=== PATIENT | female | born 1990 ===

== ENCOUNTER 2016-09-21 09:12 | Emergency (ER) | payer MEDICAID ==
[2016-09-21 09:12] VITALS: BMI 19.6
[2016-09-21 09:24] VITALS: BP 122/75; PULSE 89; RESP 15; TEMP 99.2; O2SAT 99
--- NOTE | 2016-09-21 09:51 | ED PDOC ---
Arrival/HPI - General Historian: Patient - General Chief Complaint: Eye Problem Time Seen by Provider: 09/21/16 09:45 - History of Present Illness Narrative History of Present Illness (Text): 09/21/16 10:04 26 yo female come in for evaluation of Right eye swelling over upper eyelid associated with mild pain gradually developed for past 2 days. Otherwise, pt denies known trauma or injury, fever, chills, denies visual changes, blurry vision, double vision, eye discharge, pain with eye movement, denies contact use. Ambulate to Ed for evaluation, not in any apparent distress. (Rosalind Batista) Past Medical History - Provider Review Nursing Documentation Reviewed: Yes - Travel History Have you recently traveled outside [place] w/in the past 3 mons?: No - Past History Past History: No Previous - Tetanus Immunization Tetanus Immunization: Unknown - Cardiac Hx Cardiac Disorders: No - Pulmonary Hx Respiratory Disorders: No - Neurological Hx Neurological Disorder: No - HEENT Hx HEENT Disorder: No - Renal Hx Renal Disorder: No - Endocrine/Metabolic Hx Endocrine Disorders: No - Hematological/Oncological Hx Anemia: Yes - Integumentary Hx Dermatological Disorder: No - Musculoskeletal/Rheumatological Hx Musculoskeletal Disorders: No - Gastrointestinal Hx Gastrointestinal Disorders: No - Genitourinary/Gynecological Hx Genitourinary Disorders: No - Psychiatric Hx Psychophysiologic Disorder: No Hx Substance Use: No Family/Social History - Physician Review Nursing Documentation Reviewed: Yes Family/Social History: No Known Family HX Smoking Status: Never Smoked Hx Alcohol Use: No Hx Substance Use: No Allergies/Home Meds Allergies/Adverse Reactions: Allergies diphenhydramine [From Benadryl] Allergy (Verified 09/21/16 09:24) .anxiety Review of Systems - Physician Review All systems were reviewed & negative as marked: Yes - Review of Systems Constitutional: Normal Eyes: Eye Pain ENT: Normal Respiratory: Normal Musculoskeletal: Normal Skin: Normal Neurological: Normal Endocrine: Normal Hemo/Lymphatic: Normal Psychiatric: Normal Physical Exam Vital Signs Reviewed: Yes Temperature: Afebrile Blood Pressure: Normal Pulse: Regular Respiratory Rate: Normal Appearance: Positive for: Well-Appearing, Non-Toxic, Comfortable Pain Distress: Mild Mental Status: Positive for: Alert and Oriented X 3 - Systems Exam Head: Present: Normocephalic Pupils: Present: PERRL Extroacular Muscles: Present: EOMI, Other (no pain or limitation on extraocular movement B/L) Conjunctiva: Present: Normal, Other (Right eye: mild edema over upper lateral eyelid with small tender swelling noted inside upper eyelid c/w chalazion. No periorbital edema or erythema. Conjuctiva clear, no discharge.) Ears: Present: Normal, Normal Canal Mouth: Present: Moist Mucous Membranes, Normal Lips. No: Drooling Pharnyx: No: ERYTHEMA, EXUDATE, TONSILS ENLARGED Nose (Internal): Present: Normal Inspection Neck: Present: Trachea Midline. No: Meningeal Signs, JVD Neurological: Present: Speech Normal Skin: Present: Warm, Dry, Normal Color Lymphatic: No: Cervical Adenopathy Psychiatric: Present: Alert, Oriented x 3 Medical Decision Making ED Course and Treatment: 09/21/16 On re-evaluation, pt is afebrile, hemodynamicaly stable. non-toxic. VA: R20/20, L20/20, B/L20/20 Right eye; exam c/w chalazion. Pt advised on course of ds. ref. to f/u with opht in 1-2 days for re-evaluation. Return to Ed if any worsening or new changes. (Rosalind Batista) I was available for consultation during PA evaluation. The chart was reviewed by me, and I agree with disposition. The documented history was done by the physician locksmith. The documented physical exam was done by the physician locksmith. The documented procedures were done by the physician locksmith. (Malik Hernandez) Disposition/Present on Arrival - Present on Arrival Any Indicators Present on Arrival: No History of DVT/PE: No History of Uncontrolled Diabetes: No Urinary Catheter: No History of Decub. Ulcer: No History Surgical Site Infection Following: None - Disposition Have Diagnosis and Disposition been Completed?: Yes Disposition Time: 09:48 - Disposition Diagnosis: Chalazion Disposition: HOME/ ROUTINE Condition: STABLE Discharge Instructions (ExitCare): Chalazion (ED) Print Language: WELSH Additional Instructions: WARM COMPRESSES TO RIGHT EYE TAKE MEDICATION PRESCRIBED FOLLOW UP WITH OPHTHALMOLOGY IN 2-3 DAYS FOR RE-EVALUATION. RETURN TO ED IF ANY WORSENING OR NEW CHANGES. Prescriptions: Neomycin/Polymyxin/Dexamethaso [Dexamethasone/Neomycin/Polymyxin 5 Ml] 2 drop RIGHTEYE Q4 #1 bottle Referrals: Farhan Aponte MD [Staff Provider] - Follow up with primary Forms: [employer] (Nepalese), WORK NOTE
== END 2016-09-21 10:03 | disposition home or self-care (01) ==
LOC: ED 09:12
DX: H00.11 Chalazion right upper eyelid (principal)

== ENCOUNTER 2016-11-14 09:57 | Emergency (ER) | payer MEDICAID ==
[2016-11-14 09:58] VITALS: BMI 19.6
[2016-11-14 10:03] VITALS: TEMP 98.3
[2016-11-14 10:20] LABS: URINE BILIRUBIN NEGATIVE (NEGATIVE); URINE BLOOD NEGATIVE (NEGATIVE); URINE GLUCOSE (UA) NEGATIVE (NEGATIVE); URINE KETONE NEGATIVE (NEGATIVE); URINE LEUKOCYTE ESTERASE LARGE Leu/uL (NEGATIVE); URINE PROTEIN NEGATIVE mg/dL (<30 mg/dL); URINE UROBILINOGEN 0.2 E.U./dL (<1 E.U./dL)
--- NOTE | 2016-11-14 10:26 | ED PDOC ---
Arrival/HPI - General Chief Complaint: Abdominal Pain Time Seen by Provider: 11/14/16 10:02 Historian: Patient - History of Present Illness Narrative History of Present Illness (Text): 11/14/16 10:23 A 26 year old female, with no significant past medical history, presents with 2 week duration, intermittent left lower quadrant abdominal pain. The patient denies any symptoms, fevers, chills, headache, dizziness, chest pain, shortness of breath, dyspnea on exertion, cough, nausea, vomiting, diarrhea, back pain, neck pain, dysuria, or any other complaint. PMD: Dr. Linda Camp Time/Duration: Other (2 weeks) Symptom Onset: Sudden Symptom Course: Unchanged Activities at Onset: Rest, Light Context: Home Past Medical History - Provider Review Nursing Documentation Reviewed: Yes - Past History Past History: No Previous - Infectious Disease Hx of Infectious Diseases: None - Tetanus Immunization Tetanus Immunization: Unknown - Cardiac Hx Cardiac Disorders: No - Pulmonary Hx Respiratory Disorders: No - Neurological Hx Neurological Disorder: No - HEENT Hx HEENT Disorder: No - Renal Hx Renal Disorder: No - Endocrine/Metabolic Hx Endocrine Disorders: No - Hematological/Oncological Hx Anemia: Yes - Integumentary Hx Dermatological Disorder: No - Musculoskeletal/Rheumatological Hx Musculoskeletal Disorders: No - Gastrointestinal Hx Gastrointestinal Disorders: No - Genitourinary/Gynecological Hx Genitourinary Disorders: No - Psychiatric Hx Psychophysiologic Disorder: No Hx Substance Use: No - Anesthesia Hx Anesthesia: No Family/Social History - Physician Review Nursing Documentation Reviewed: Yes Family/Social History: No Known Family HX Smoking Status: Never Smoked Hx Alcohol Use: No Hx Substance Use: No Allergies/Home Meds Allergies/Adverse Reactions: Allergies diphenhydramine [From Benadryl] Allergy (Verified 11/14/16 10:00) .anxiety Review of Systems - Physician Review All systems were reviewed & negative as marked: Yes Physical Exam - Physical Exam Narrative Physical Exam (Text): - Review of Systems Constitutional: Normal. absent: Fatigue, Weight Change, Fevers Eyes: Normal ENT: denies sore throat, denies tristhmus Respiratory: Normal. absent: SOB, Cough, Sputum Cardiovascular: absent: Chest Pain, Palpitations, Syncope Gastrointestinal: (+) LLQ Abdominal Pain. absent: Diarrhea, Nausea, Vomiting Genitourinary: Normal. absent: Dysuria, Frequency, Hematuria, vaginal bleeding Musculoskeletal: Normal. absent: Arthralgias, Back Pain, Neck Pain Skin: no rashes, no erythema Neurological: absent: Focal Weakness Endocrine: Normal Hemo/Lymphatic: Normal Psychiatric: No suicidal or homicidal ideations Physical exam Patient appears age appropriate in no distress, speaking full sentences without difficulty - Systems Exam Head: Present: Atraumatic, Normocephalic Pupils: Present: PERRL Extroacular Muscles: Present: EOMI Conjunctiva: Present: Normal Mouth: Present: Moist Mucous Membranes Neck: Present: Normal Range of Motion. No: MIDLINE TENDERNESS, Paraspinal Tenderness Respiratory/Chest: Present: Clear to Auscultation, Good Air Exchange. No: Respiratory Distress, Accessory Muscle Use, Tachypneic Cardiovascular: Present: Regular Rate and Rhythm, Normal S1, S2, Peripheal Pulses Present. No: Murmurs Abdomen: Present: Suprapubic and LLQ Tenderness to palpation. Normal Bowel Sounds. No: Distention, Peritoneal Signs, Rebound, Guarding Back: Present: Normal Inspection. No: Midline Tenderness, Paraspinal Tenderness Upper Extremity: Present: Normal Inspection. No: Cyanosis, Edema Lower Extremity: Present: Normal Inspection. No: Edema Neurological: Present: GCS=15, Speech Normal, cranial nerves II through XII fully intact with no cerebellar abnormality, neurosensory fully intact. No focal neurological deficits. Skin: Present: Warm, Dry, Normal Color. No: Rashes Lymphatic: Present: OX3, NI, NC Psychiatric: Present: Alert, Oriented x 3, Normal Insight, Normal Concentration Vital Signs Reviewed: Yes Vital Signs Temp Pulse Resp BP Pulse Ox 11/14/16 09:58 98.3 F 84 16 124/80 100 Temperature: Afebrile Blood Pressure: Normal Pulse: Regular Respiratory Rate: Normal Appearance: Positive for: Well-Appearing, Non-Toxic, Comfortable Pain Distress: None Mental Status: Positive for: Alert and Oriented X 3 Medical Decision Making ED Course and Treatment: 11/14/16 10:29 Impression: A 26 year old female with 2 week duration, intermittent LLQ abdominal pain. On exam, patient has Suprapubic and LLQ tenderness on palpation. Differential Diagnosis included but are not limited to: UTI vs. Ovarian Cysts Plan: -- Pelvic Ultrasound -- Labs -- Urinalysis -- Reassess and disposition Prior Visits: Notes and results from previous visits were reviewed. Patient was last seen in the emergency department on 09/21/2016 for right eye swelling and mild pain. Progress Notes: 11/14/16 10:29: test negative. 11/14/16 12:22 UA with no evidence for infection Cx and GC/Chlam sent US Dr Melendez IMPRESSION: 1. 3.4 cm heterogeneous fundal and posterior wall mass in the uterus is nonspecific. The differential considerations include fibroid however other neoplasms cannot be entirely excluded. Transvaginal pelvic ultrasound/MRI would be helpful for further evaluation. 2. Question of hemorrhagic cyst in the left ovary. pt informed of finding and instructed to fu with [employer] specialist for further w/u On reevaluation, patient reports that she feels much better and would like to be discharged home. Patient's repeat abdominal exam is soft, nontender, non distended with positive bowel sounds in all 4 quadrants and no peritoneal signs. Patient is tolerating PO without any difficulty. Pt states she understands to return to the ER right away for new or worsening symptoms or for inability to f/u with PMD or specialist as instructed. Patient states that she fully agrees with and understands discharge instructions. States that she agrees with the plan and disposition. Verbalized and repeated discharge instructions and plan. I have given the patient opportunity to ask any additional questions. - Lab Interpretations Lab Results: 11/14/16 10:29 11/14/16 10:29 Lab Results 11/14/16 10:29: Sodium 143, Potassium 4.1, Chloride 106, Carbon Dioxide 24, Anion Gap 17, BUN 11, Creatinine 0.6, Est GFR ( Amer) > 60, Est GFR (Non- Af Amer) > 60, Random Glucose 93, Calcium 8.9, Total Bilirubin 0.4, AST 25, ALT 30, Alkaline Phosphatase 52, Total Protein 7.5, Albumin 4.4, Globulin 3.1, Albumin/Globulin Ratio 1.4 11/14/16 10:29: WBC 7.2, RBC 4.16, Hgb 12.3, Hct 36.9, MCV 88.7, MCH 29.6, MCHC 33.3, RDW 13.0, Plt Count 155, MPV 10.8, Gran % 68.6 H, Lymph % (Auto) 24.5, Storey % (Auto) 6.0, Eos % (Auto) 0.8 L, Baso % (Auto) 0.1, Gran # 4.90, Lymph # 1.8, Storey # 0.4, Eos # 0.1, Baso # 0.01 11/14/16 10:17: Urine Color Yellow, Urine Appearance Clear, Urine pH 6.0, Ur Specific Silver 1.020, Urine Protein Negative, Urine Glucose (UA) Negative, Urine Ketones Negative, Urine Blood Negative, Urine Nitrate Negative, Urine Bilirubin Negative, Urine Urobilinogen 0.2, Ur Leukocyte Esterase Large H, Urine RBC Negative, Urine WBC 5 - 10, Ur Epithelial Cells Many, Urine Bacteria Small I have reviewed the lab results: Yes - RAD Interpretation Radiology Orders: 11/14/16 10:19 Pelvis [PELVIS ULTRASOUND] [US] Routine - Scribe Statement The provider has reviewed the documentation as recorded by the Scribe Katelyn Tapia Provider Scribe Attestation: All medical record entries made by the Scribe were at my direction and personally dictated by me. I have reviewed the chart and agree that the record accurately reflects my personal performance of the history, physical exam, medical decision making, and the department course for this patient. I have also personally directed, reviewed, and agree with the discharge instructions and disposition. Disposition/Present on Arrival - Present on Arrival Any Indicators Present on Arrival: No History of DVT/PE: No History of Uncontrolled Diabetes: No Urinary Catheter: No History of Decub. Ulcer: No History Surgical Site Infection Following: None - Disposition Have Diagnosis and Disposition been Completed?: Yes Diagnosis: Abdominal pain Disposition: HOME/ ROUTINE Disposition Time: 12:24 Patient Plan: Discharge Condition: GOOD Discharge Instructions (ExitCare): Ovarian Cyst (ED) Additional Instructions: PLEASE RETURN TO THE EMERGENCY DEPARTMENT FOR NEW OR WORSENING SYMPTOMS. RETURN RIGHT AWAY IF YOU CANNOT FOLLOW UP WITH YOUR PRIMARY CARE DOCTOR, CLINIC, OR SPECIALIST IN 1-2 DAYS. Prescriptions: Ibuprofen [Motrin] 600 mg PO Q8 PRN #12 tab PRN Reason: Pain, Moderate (4-7) Referrals: Bo Camp APN [Primary Care Provider] - Follow up with primary Stas Mendoza [Medical Doctor] - Follow up with primary Forms: [employer] (Tajik), WORK NOTE
[2016-11-14 10:34] LABS: URINE APPEARANCE CLEAR (CLEAR); URINE COLOR YELLOW (YELLOW)
[2016-11-14 10:36] LABS: URINE BACTERIA SMALL (NEG); URINE EPITHELIAL CELLS MANY /hpf (0-5); URINE RBC NEGATIVE /hpf (0-2)
[2016-11-14 10:38] LABS: BASO # 0.01 K/mm3 (0.0-2.0); BASO % 0.1 % (0.0-3.0); EOS # 0.1 (0.0-0.7); EOS % 0.8 % (1.5-5.0); GRAN # 4.9 (1.4-6.5); GRAN % 68.6 % (50.0-68.0); HEMATOCRIT 36.9 % (36.0-48.0); LYMPH # 1.8 (1.2-3.4); LYMPH % 24.5 % (22.0-35.0); MEAN CELL VOLUME 88.7 fl (80.0-105.0); MEAN CORPUSCULAR HEMOGLOBIN 29.6 pg (25.0-35.0); MEAN CORPUSCULAR HGB CONC 33.3 g/dl (31.0-37.0); MEAN PLATELET VOLUME 10.8 fl (7.0-11.0); MONO # 0.4 (0.1-0.6); WHITE BLOOD COUNT 7.2 10^3/ul (4.5-11.0)
[2016-11-14 10:46] LABS: ALB/GLOB RATIO 1.4 (1.1-1.8); ALKALINE PHOSPHATASE 52 U/L (38-126); ALT/SGPT 30 U/L (7-56); AST/SGOT 25 U/L (14-36); BILIRUBIN,TOTAL 0.4 mg/dL (0.2-1.3); BLOOD UREA NITROGEN 11 mg/dL (7-21); CALCIUM 8.9 mg/dL (8.4-10.5); CARBON DIOXIDE 24 mmol/L (21-33); CHLORIDE 106 mmol/L (98-107); GFR AFRICAN-AMERICAN > 60; GLUCOSE,RANDOM 93 mg/dL (70-110); POTASSIUM 4.1 mmol/L (3.6-5.0); SODIUM 143 mmol/L (132-148); TOTAL PROTEIN 7.5 g/dL (5.8-8.3)
--- NOTE | 2016-11-14 12:10 | US ---
HISTORY: Left lower quadrant pain COMPARISON: 03/10/2015. TECHNIQUE: Transabdominal pelvic ultrasound was performed. FINDINGS: UTERUS: Measures 8.6 x 3.6 x 4.6 cm. The uterus is anteverted. There is a 3.4 x 3.4 x 2.8 cm heterogeneous predominantly hyperechoic mass in the fundus and posterior wall of the midbody of the uterus. ENDOMETRIUM: Measures 5.0 mm in diameter. Unremarkable. CERVIX: No cervical abnormality identified. RIGHT OVARY: Measures 2.3 x 1.9 x 2.0 cm. No solid mass. Normal flow. LEFT OVARY: Measures 2.9 x 2.4 x 2.8 cm. No solid mass. Normal flow. There is a 3.0 cm echogenic lesion in the ovary with mild increased vascularity. FREE FLUID: There is small amount free fluid noted. OTHER FINDINGS: None. IMPRESSION: 1. 3.4 cm heterogeneous fundal and posterior wall mass in the uterus is nonspecific. The differential considerations include fibroid however other neoplasms cannot be entirely excluded. Transvaginal pelvic ultrasound/MRI would be helpful for further evaluation. 2. Question of hemorrhagic cyst in the left ovary.
[2016-11-14 12:29] VITALS: BP 111/73; PULSE 74; RESP 18; O2SAT 97
== END 2016-11-14 12:43 | disposition home or self-care (01) ==
LOC: ED 09:57
DX: R10.9 Unspecified abdominal pain (principal); D64.9 Anemia, unspecified

== ENCOUNTER 2017-04-05 11:37 | Emergency (ER) | payer MEDICAID ==
[2017-04-05 11:38] VITALS: BMI 19.6
[2017-04-05 12:00] VITALS: BP 114/72; PULSE 96; RESP 18; TEMP 99; O2SAT 100
--- NOTE | 2017-04-05 12:18 | ED PDOC ---
Arrival/HPI - General Chief Complaint: Flu-like Symptoms Time Seen by Provider: 04/05/17 11:38 Historian: Patient - History of Present Illness Narrative History of Present Illness (Text): 04/05/17 12:15 A 26 year old female, with no significant past medical history, presents to the emergency department complaining of sore throat and myalgias since last night. Patient reports also experiencing chills and slight coughing. Patient denies any other symptoms. Has been asked if she wants to take flu test or to be given prescription for Tamiflu. Patient refuses flu test and asks for prescription instead. PMD: Dr. Camp Time/Duration: Other (last night) Symptom Onset: Sudden Symptom Course: Unchanged Past Medical History - Provider Review Nursing Documentation Reviewed: Yes - Past History Past History: No Previous - Infectious Disease Hx of Infectious Diseases: None - Tetanus Immunization Tetanus Immunization: Unknown - Cardiac Hx Cardiac Disorders: No - Pulmonary Hx Respiratory Disorders: No - Neurological Hx Neurological Disorder: No - HEENT Hx HEENT Disorder: No - Renal Hx Renal Disorder: No - Endocrine/Metabolic Hx Endocrine Disorders: No - Hematological/Oncological Hx Anemia: Yes - Integumentary Hx Dermatological Disorder: No - Musculoskeletal/Rheumatological Hx Musculoskeletal Disorders: No - Gastrointestinal Hx Gastrointestinal Disorders: No - Genitourinary/Gynecological Hx Genitourinary Disorders: No - Psychiatric Hx Psychophysiologic Disorder: No Hx Substance Use: No - Anesthesia Hx Anesthesia: No Hx Anesthesia Reactions: No Hx Malignant Hyperthermia: No Family/Social History - Physician Review Nursing Documentation Reviewed: Yes Family/Social History: No Known Family HX Smoking Status: Never Smoked Hx Alcohol Use: No Hx Substance Use: No Allergies/Home Meds Allergies/Adverse Reactions: Allergies diphenhydramine [From Benadryl] Allergy (Verified 11/14/16 10:00) .anxiety Review of Systems - Physician Review All systems were reviewed & negative as marked: Yes - Review of Systems Constitutional: Night Sweats. absent: Fevers ENT: Sore Throat Respiratory: Cough (slightly) Musculoskeletal: Myalgias Physical Exam Vital Signs Reviewed: Yes Vital Signs Temp Pulse Resp BP Pulse Ox 04/05/17 11:38 99 F 96 H 18 114/72 100 Temperature: Afebrile Blood Pressure: Normal Pulse: Regular Respiratory Rate: Normal Appearance: Positive for: Well-Appearing Pain Distress: None Mental Status: Positive for: Alert and Oriented X 3 - Systems Exam Head: Present: Atraumatic, Normocephalic Pupils: Present: PERRL Extroacular Muscles: Present: EOMI Conjunctiva: Present: Normal Mouth: Present: Moist Mucous Membranes Neck: Present: Normal Range of Motion Respiratory/Chest: Present: Clear to Auscultation, Good Air Exchange. No: Respiratory Distress, Accessory Muscle Use Cardiovascular: Present: Regular Rate and Rhythm, Normal S1, S2. No: Murmurs Abdomen: Present: Normal Bowel Sounds. No: Tenderness, Distention, Peritoneal Signs Back: Present: Normal Inspection Upper Extremity: Present: Normal Inspection. No: Cyanosis, Edema Lower Extremity: Present: Normal Inspection. No: Edema Neurological: Present: GCS=15, CN II-XII Intact, Speech Normal Skin: Present: Warm, Dry, Normal Color. No: Rashes Psychiatric: Present: Alert, Oriented x 3, Normal Insight, Normal Concentration Medical Decision Making ED Course and Treatment: 04/05/17 12:15 Impression: 26 year old female with sore throat, myalgias, slight cough, and chills. No acute findings on physical examination. Plan: -- Tamiflu -- Reassess and disposition Progress Notes: 04/05/17 16:02 high clinical suspcition for flu. [email or web address] 04/05/17 16:02 pt observed on phone in nad. well appearing speaking full sentences in nad - Scribe Statement The provider has reviewed the documentation as recorded by the Dona Sloan Provider Scribe Attestation: All medical record entries made by the Chetibramu were at my direction and personally dictated by me. I have reviewed the chart and agree that the record accurately reflects my personal performance of the history, physical exam, medical decision making, and the department course for this patient. I have also personally directed, reviewed, and agree with the discharge instructions and disposition. Disposition/Present on Arrival - Present on Arrival Any Indicators Present on Arrival: No History of DVT/PE: No History of Uncontrolled Diabetes: No Urinary Catheter: No History of Decub. Ulcer: No History Surgical Site Infection Following: None - Disposition Have Diagnosis and Disposition been Completed?: Yes Diagnosis: Influenza-like illness Disposition: HOME/ ROUTINE Disposition Time: 12:00 Condition: STABLE Discharge Instructions (ExitCare): Viral Syndrome (ED) Print Language: CHADIAN Additional Instructions: follow up with your doctor. return to er with worsening symptoms or concerns. Prescriptions: Oseltamivir Phosphate [Tamiflu] 75 mg PO BID #14 capsule Referrals: Sunshine Camp DO [Primary Care Provider] - Follow up with primary Forms: [employer] (Czech), WORK NOTE
== END 2017-04-05 12:32 | disposition home or self-care (01) ==
LOC: ED 11:37
DX: J11.1 Influenza due to unidentified influenza virus with other respiratory manifestations (principal)